=== PATIENT | male | born 1940 | race Caucasian/White ===

== ENCOUNTER 2022-09-29 08:32 | Outpatient (CLI) | payer MEDICARE, OTHER ==
[2022-09-29] MEDS ORDERED: Iopamidol 370 76% 100 ML VIAL ONE (11:22)
== END 2022-09-29 08:33 | disposition home or self-care (01) ==
LOC: CSHCT 08:32
PROVIDERS: ATTEND Thoracic Surgery (Cardiothoracic Vascular Surgery)
DX: I73.9 Peripheral vascular disease, unspecified (principal); I77.1 Stricture of artery; I70.1 Atherosclerosis of renal artery; R91.8 Other nonspecific abnormal finding of lung field; M79.89 Other specified soft tissue disorders
CPT/HCPCS: 75635; 82565

== ENCOUNTER 2022-10-30 20:55 | Emergency (ER) | payer MEDICARE, OTHER ==
[2022-10-30 22:25] LABS: Hemoglobin 13.2 g/dL (13.5-17.5); Mean Corpuscular HGB CONC 33.8 g/dL (32.0-36.0); Mean Corpuscular Hemoglobin 30.5 pg (27.0-33.0); Mean Corpuscular Volume 90.1 fl (81.2-95.1); Mean Platelet Volume 8.8 fl (7.4-10.4); Platelet Count 297 10x3/uL (150-450); RBC Distribution Width 13.6 % (11.5-14.5); Red Blood Cell (RBC) Count 4.33 10x6/uL (4.32-5.72)
[2022-10-30 22:37] LABS: INR-International Normal Ratio 0.9; PTT 31.6 sec (22.0-33.0); Prothrombin Time 10.3 sec (9.5-12.1)
[2022-10-30 22:41] LABS: MDiff Complete? YES
[2022-10-30 22:53] LABS: ALT (SGPT) 33 U/L (8-55); AST (SGOT) 25 U/L (5-34); Albumin 3.6 g/dL (3.4-4.8); Alkaline Phosphatase 79 U/L (40-110); Anion Gap 12 mmol/L (10-20); BUN (Urea Nitrogen) 17 mg/dL (8.4-25.7); Bilirubin, Total 0.3 mg/dL (0.2-1.2); Calc. Creatinine Clearance 0 mL/min (70-130); Calcium 9.1 mg/dL (7.8-10.44); Carbon Dioxide 23 mmol/L (23-31); Chloride 105 mmol/L (98-107); Estimated GFR 73; Glucose 133 mg/dL (83-110); Potassium 3.7 mmol/L (3.5-5.1); Protein, Total 6.6 g/dL (5.8-8.1); Sodium 136 mmol/L (136-145)
[2022-10-30 23:15] LABS: Eosinophils 4 % (0-10); Lymphocytes 24 % (21-51); Monocytes 9 % (0-10); Neutrophil 62 % (42-75)
== END 2022-10-31 00:57 | disposition home or self-care (01) ==
LOC: CSHERS 20:55
DX: M79.81 Nontraumatic hematoma of soft tissue (principal); Z95.820 Peripheral vascular angioplasty status with implants and grafts; K21.9 Gastro-esophageal reflux disease without esophagitis; E78.00 Pure hypercholesterolemia, unspecified; I10 Essential (primary) hypertension; F17.210 Nicotine dependence, cigarettes, uncomplicated
CPT/HCPCS: 76936; 80053; 85025; 85610; 85730